=== PATIENT | male | born 1985 | race Caucasian/White ===

== ENCOUNTER 2020-09-07 08:42 | Emergency (ER) | payer SELFPAY ==
[~2020-09-07] VITALS: Ht 180.3 cm; Wt 40.3 kg
[2020-09-07] MEDS ORDERED: IBUP-1007 PO (09:49)
[2020-09-07] MEDS ORDERED: AMOX500C PO (09:49)
--- NOTE | 2020-09-07 09:49 | PHYS DOC ---
Past Medical History Past Medical History: Hypertension Past Surgical History: Other Additional Past Surgical Histo: THUMB AND KNEE Smoking Status: Never Smoker Alcohol Use: None General Adult EDM: Chief Complaint: DENTAL PROBLEM HPI: HPI: Patient is a 35-year-old male who presents with chief complaint of dental pain on his right lower teeth. He denies any recent trauma or injury but states the pain is been present for the past several days. Notes he is trying to see dentist when he goes back home in 4 days. Denies any fevers. Does note pain with chewing on that side. Denies sore throat. Denies pain with opening his mouth. Denies changes to his voice. Denies neck pain. Has not tried any medicine prior to arrival. Denies recent antibiotics no other complaints. Review of Systems: Review of Systems: Constitutional: Denies fever or chills. [] Eyes: Denies change in visual acuity. [] HENT: Positive for dental pain Respiratory: Denies cough or shortness of breath. [] Cardiovascular: Denies chest pain or edema. [] GI: Denies abdominal pain, nausea, vomiting, bloody stools or diarrhea. [] : Denies dysuria. [] Musculoskeletal: Denies back pain or joint pain. [] Integument: Denies rash. [] Neurologic: Denies headache, focal weakness or sensory changes. [] Endocrine: Denies polyuria or polydipsia. [] Lymphatic: Denies swollen glands. [] Psychiatric: Denies depression or anxiety. [] Heart Score: Risk Factors: Risk Factors: DM, Current or recent (<one month) smoker, HTN, HLP, family history of CAD, obesity. Risk Scores: Score 0 - 3: 2.5% MACE over next 6 weeks - Discharge Home Score 4 - 6: 20.3% MACE over next 6 weeks - Admit for Clinical Observation Score 7 - 10: 72.7% MACE over next 6 weeks - Early Invasive Strategies Physical Exam: PE: Constitutional: Well developed, well nourished, no acute distress, non-toxic appearance. [] HENT: ENT: Numerous dental caries without overt evidence of periapical abscess formation. Most notable over teeth 31 through 29. Tolerates saliva. No trismu s. No erythema or exudate of the oropharynx. No airway obstruction or deep space infection. Normal phonation. Uvula midline. NECK: No midline cervical tenderness. Anterior cervical adenopathy not present. No tenderness of carotid sheath bilaterally. No submental tenderness, swelling, or erythema. Neck supple with full ROM and without signs of meningismus. Eyes: PERRLA, EOMI, conjunctiva normal, no discharge. [] Neck: Normal range of motion, no tenderness, supple, no stridor. [] Cardiovascular:Heart rate regular rhythm, no murmur [] Lungs & Thorax: Bilateral breath sounds clear to auscultation [] Abdomen: soft, no tenderness, no masses, no pulsatile masses. [] Skin: Warm, dry, no erythema, no rash. [] Back: No tenderness, no CVA tenderness. [] Extremities: No tenderness, no cyanosis, no clubbing, ROM intact, no edema. [] Neurologic: Alert and oriented X 3, normal motor function, normal sensory function, no focal deficits noted. [] Psychologic: Affect normal, judgement normal, mood normal. [] Current Patient Data: Vital Signs: Vital Signs Date Time Temp Pulse Resp B/P (MAP) Pulse Ox O2 Delivery O2 Flow Rate FiO2 09/07/20 08:50 97.9 72 16 132/90 (104) 94 Room Air 97.9 EKG: EKG: [] Radiology/Procedures: Radiology/Procedures: [] Course & Med Decision Making: Course & Med Decision Making Pertinent Labs and Imaging studies reviewed. (See chart for details) [] Overall patient is a well-appearing nontoxic-appearing 35-year-old male who presents with dental pain over the past several days. Low suspicion for deep space infection. Signs and symptoms are consistent with this. Patient was given oral amoxicillin and supportive care measures at home. He states he does have follow-up with his dentist in 4 days. Instructed to keep this appointment. Return precautions discussed understood. He did tolerate his first dose of medication in the emergency department without difficulty. Stable for discharge home. At this point I estimate that the patient is low risk for an emergent etiology such as; acute necrotizing ulcerative gingivitis, retropharyngeal abscess, peritonsillar abscess, Moustapha's Angina, bacterial meningitis, unstable cervical fracture, or airway compromise. There is a very small possibility that any of these conditions (or others) could potentialy be in the very early stages and/or could develop in the near future, but at this point, I consider discharge a reasonable course of action. Connie Disclaimer: Connie Disclaimer: This electronic medical record was generated, in whole or in part, using a voice recognition dictation system. Departure Departure Impression: Primary Impression: Tooth pain Disposition: 01 DC HOME SELF CARE/HOMELESS Condition: STABLE Referrals: NO PCP (PCP) Patient Instructions: Dental Abscess, Dental Caries Additional Instructions: Please follow-up with your dentist at your regularly scheduled appointment in 4 days. Scripts Ibuprofen (IBUPROFEN) 600 Mg Tablet 600 MG PO PRN Q6HRS PRN for PAIN, #20 TAB take with food or milk Prov: MIHAI RIVERO DO 09/07/20 Amoxicillin (AMOXICILLIN) 500 Mg Capsule 1 CAP PO BID for 10 Days, #20 CAP Prov: MIHAI RIVERO DO 09/07/20 MIHAI RIVERO DO Sep 07, 2020 09:49
[2020-09-07 10:30] VITALS: BP 128/77
[2020-09-07] MEDS ORDERED: AMOXICILLIN 250 MG CAPSULE. PO ONE (10:30)
[2020-09-07] MEDS ORDERED: HYDROcodone/APAP 5/325MG 1 TAB TABLET PO ONE (10:30)
== END 2020-09-07 11:20 | disposition home or self-care (01) ==
LOC: ER 08:42
DX: K08.89 Other specified disorders of teeth and supporting structures (principal); I10 Essential (primary) hypertension; Z98.890 Other specified postprocedural states
CPT/HCPCS: 99283